=== PATIENT | male | born 2000 | race Caucasian/White ===

== ENCOUNTER 2023-10-18 20:34 | Inpatient (IN) | payer MEDICAID ==
[~2023-10-18] VITALS: Ht 170.2 cm; Wt 97.0 kg
[2023-10-18] MEDS ORDERED: GUAN1TAB22 PO (21:01)
[2023-10-18] MEDS ORDERED: CARI1.5C PO (21:02)
[2023-10-18] MEDS ORDERED: DIVA-153 PO (21:02)
[2023-10-18] MEDS ORDERED: OXCA300T70 PO (21:03)
[2023-10-18 22:36] LABS: BASOPHILS % (AUTO) 0.3 % (0.0-2.0); EOSINOPHILS % (AUTO) 1.3 % (1.0-6.0); HEMATOCRIT 49.2 % (41-53); HEMOGLOBIN 16.5 g/dL (13.5-17.5); LYMPHOCYTES # (AUTO) 2.3 K/uL (1.0-4.8); LYMPHOCYTES % (AUTO) 31.6 % (22.0-44.0); MEAN CORPUSCULAR HEMOGLOBIN 32.3 pg (26.0-34.0); MEAN CORPUSCULAR HGB CONC 33.5 G/dL (31.0-37.0); MEAN CORPUSCULAR VOLUME 97 fL (80-100); MONOCYTES # (AUTO) 0.8 K/uL (0.1-1.0); MONOCYTES % (AUTO) 10.2 % (2.0-9.0); NEUTROPHILS # (AUTO) 4.2 K/uL (1.8-7.7); NEUTROPHILS % (AUTO) 56.6 % (40.0-70.0); PLATELET COUNT (AUTO) 209 K/uL (150-450); RED CELL DISTRIBUTION WIDTH 14.3 % (11.5-14.5); WHITE BLOOD COUNT (AUTO) 7.4 K/uL (4.5-11.0)
[2023-10-18 22:43] LABS: ANION GAP 0 mmol/L (8-16); CALCIUM, TOTAL 9.6 mg/dL (8.8-10.5); CARBON DIOXIDE 35 mmol/L (22-29); CHLORIDE 104 mmol/L (98-107); CREATININE 0.91 mg/dL (0.60-1.30); GLOMERULAR FILTR. RATE CALC > 60 mL/min (>60); GLUCOSE,RANDOM 94 mg/dL (70-110); POTASSIUM 4.3 mmol/L (3.5-5.1); SODIUM SERUM 139 mmol/L (136-145); UREA NITROGEN, BLOOD 15 mg/dL (7-18)
[2023-10-18 22:45] LABS: C-REACTIVE PROTEIN QUANT 0.05 mg/dL (0.00-0.30)
[2023-10-18 22:49] LABS: ERYTHROCYTE SEDIMENTATION RATE 1 MM/HR (0-15)
[2023-10-19] MEDS: PIPERACILLIN/TAZO 3.375 GM/D5W 50 ML IV ONE (01:02)
[2023-10-19 01:18] LABS: LACTIC ACID 1.1 mmol/L (0.4-2.0)
[2023-10-19 05:00] VITALS: BP 114/48; PULSE 63; RESP 18; TEMP 97.8
[2023-10-19 08:10] VITALS: BP 104/57; PULSE 56; RESP 18; TEMP 97.6
[2023-10-19] MEDS ORDERED: ZOLPIDEM TARTRATE 5 MG TABLET PO PRN (08:30)
[2023-10-19] MEDS ORDERED: MORPHINE SULFATE 2 MG/ML SYRINGE IVP PRN (08:30)
[2023-10-19] MEDS ORDERED: BISACODYL 10 MG RECTAL RECTAL SUPPOSITORY PR PRN (08:30)
[2023-10-19] MEDS ORDERED: ONDANSETRON HCL 4 MG/2 ML VIAL IVP PRN (08:30)
[2023-10-19] MEDS ORDERED: ACETAMINOPHEN 325 MG TABLET PO PRN (08:30)
[2023-10-19] MEDS ORDERED: HYDROCODONE/ACETAMINOPHEN 5-325 MG TABLET PO PRN (08:30)
[2023-10-19] MEDS ORDERED: MAGNESIUM HYDROXIDE SUSPENSION 30 ML UDCUP PO PRN (08:30)
[2023-10-19] MEDS ORDERED: [UNRECOGNIZED DRUG - OTHER] PO SCH (09:00)
[2023-10-19] MEDS ORDERED: SODIUM CHLORIDE 0.9% 500 ML IV ONE (09:24)
[2023-10-19] MEDS: DIVALPROEX SODIUM 500 MG ER TABLET PO SCH (09:34)
[2023-10-19] MEDS: PANTOPRAZOLE SODIUM 40 MG DR TABLET PO SCH (09:34)
[2023-10-19] MEDS: VANCOMYCIN 1.25 GM/WATER(PEG) 250 ML IV ONE (09:34)
[2023-10-19] MEDS: DOCUSATE SODIUM 100 MG CAPSULE PO SCH (09:34)
[2023-10-19] MEDS: OXcarbazepine 300 MG TABLET PO SCH (09:34)
[2023-10-19] MEDS: VANCOMYCIN 1.25 GM/WATER(PEG) 250 ML IV SCH (16:04)
[2023-10-19] MEDS: HEPARIN SODIUM,PORCINE 5,000 UNITS/ML VIAL SQ SCH (16:05)
[2023-10-19 16:20] VITALS: BP 132/61; PULSE 59; RESP 18; TEMP 97.9
[2023-10-19 19:40] VITALS: BP 141/66; PULSE 95; RESP 20; TEMP 98
[2023-10-20 04:05] VITALS: BP 107/59; PULSE 63; RESP 20; TEMP 98.3
[2023-10-20 07:34] LABS: ANION GAP 8 mmol/L (8-16); CARBON DIOXIDE 31 mmol/L (22-29); CHLORIDE 103 mmol/L (98-107); CREATININE 0.77 mg/dL (0.60-1.30); GLOMERULAR FILTR. RATE CALC > 60 mL/min (>60); GLUCOSE,RANDOM 84 mg/dL (70-110); POTASSIUM 3.9 mmol/L (3.5-5.1); SODIUM SERUM 142 mmol/L (136-145); UREA NITROGEN, BLOOD 14 mg/dL (7-18); VANCOMYCIN,RANDOM 15.8 mcg/mL (25.0-50.0)
[2023-10-20 08:15] VITALS: BP 123/80; PULSE 60; RESP 20; TEMP 97.5
[2023-10-20] MEDS ORDERED: LEVO750T68 PO (12:07)
[2023-10-20 16:46] VITALS: BP 147/78; PULSE 73; RESP 20; TEMP 97.6
[2023-10-20 19:45] VITALS: BP 112/58; PULSE 58; RESP 19; TEMP 97.5
[2023-10-21 04:35] VITALS: BP 110/59; PULSE 97; RESP 19; TEMP 97.7
[2023-10-21 07:23] LABS: ANION GAP 7 mmol/L (8-16); CALCIUM, TOTAL 9.1 mg/dL (8.8-10.5); CARBON DIOXIDE 31 mmol/L (22-29); CHLORIDE 104 mmol/L (98-107); CREATININE 0.82 mg/dL (0.60-1.30); GLOMERULAR FILTR. RATE CALC > 60 mL/min (>60); GLUCOSE,RANDOM 91 mg/dL (70-110); POTASSIUM 3.6 mmol/L (3.5-5.1); SODIUM SERUM 142 mmol/L (136-145); UREA NITROGEN, BLOOD 10 mg/dL (7-18)
[2023-10-21 07:52] VITALS: BP 119/66; PULSE 69; RESP 18; TEMP 98.1
[2023-10-21 15:56] VITALS: BP 135/77; PULSE 75; RESP 18; TEMP 98.3
[2023-10-21 20:30] VITALS: BP 128/56; PULSE 63; RESP 20; TEMP 98
[2023-10-22 04:54] VITALS: BP 121/77; PULSE 82; RESP 18; TEMP 98
[2023-10-22 08:22] LABS: ANION GAP 10 mmol/L (8-16); CALCIUM, TOTAL 9.4 mg/dL (8.8-10.5); CARBON DIOXIDE 29 mmol/L (22-29); CHLORIDE 103 mmol/L (98-107); CREATININE 0.73 mg/dL (0.60-1.30); GLOMERULAR FILTR. RATE CALC > 60 mL/min (>60); GLUCOSE,RANDOM 97 mg/dL (70-110); POTASSIUM 3.4 mmol/L (3.5-5.1); SODIUM SERUM 142 mmol/L (136-145); UREA NITROGEN, BLOOD 9 mg/dL (7-18)
[2023-10-22 09:58] VITALS: BP 124/76; PULSE 101; RESP 18; TEMP 98.9
[2023-10-22] MEDS: POTASSIUM CHLORIDE 20 MEQ ER TABLET PO ONE (15:43)
== END 2023-10-22 17:25 | disposition home or self-care (01) | DRG 383 ==
LOC: EMS 20:35 → EDH 10-19 03:09 → 4E 10-19 04:56
PROVIDERS: ADMIT Internal Medicine; ATTEND Internal Medicine
DX: L03.115 Cellulitis of right lower limb (principal); F90.9 Attention-deficit hyperactivity disorder, unspecified type; G40.909 Epilepsy, unspecified, not intractable, without status epilepticus; L03.116 Cellulitis of left lower limb; J45.909 Unspecified asthma, uncomplicated; G80.9 Cerebral palsy, unspecified; Z88.1 Allergy status to other antibiotic agents; Z79.899 Other long term (current) drug therapy; Z79.2 Long term (current) use of antibiotics
CPT/HCPCS: 80048; 80202; 83605; 84145; 85025; 85651; 86140; 87040; 87077; 87205; 99285; G0378; J1644; J2543; J7040; Q9967

== ENCOUNTER 2023-10-31 12:16 | Inpatient (IN) | payer MEDICAID ==
[~2023-10-31] VITALS: Ht 167.6 cm; Wt 92.8 kg
[~2023-10-31 12:16] MED LIST: CARI1.5C PO; DIVA-153 PO; GUAN1TAB22 PO; LEVO750T68 PO; OXCA300T70 PO
[2023-10-31 12:46] LABS: BASOPHILS % (AUTO) 0.4 % (0.0-2.0); EOSINOPHILS % (AUTO) 0.9 % (1.0-6.0); HEMOGLOBIN 16.6 g/dL (13.5-17.5); LYMPHOCYTES # (AUTO) 1.6 K/uL (1.0-4.8); LYMPHOCYTES % (AUTO) 20.4 % (22.0-44.0); MEAN CORPUSCULAR HEMOGLOBIN 32.1 pg (26.0-34.0); MEAN CORPUSCULAR HGB CONC 33.2 G/dL (31.0-37.0); MEAN CORPUSCULAR VOLUME 97 fL (80-100); MONOCYTES # (AUTO) 0.5 K/uL (0.1-1.0); NEUTROPHILS # (AUTO) 5.5 K/uL (1.8-7.7); NEUTROPHILS % (AUTO) 72.3 % (40.0-70.0); PLATELET COUNT (AUTO) 229 K/uL (150-450); RED BLOOD CELL COUNT(AUTO) 5.17 MIL/uL (4.50-5.90); WHITE BLOOD COUNT (AUTO) 7.6 K/uL (4.5-11.0)
[2023-10-31 12:56] LABS: ANION GAP 5 mmol/L (8-16); CALCIUM, TOTAL 9.3 mg/dL (8.8-10.5); CARBON DIOXIDE 34 mmol/L (22-29); CHLORIDE 102 mmol/L (98-107); GLOMERULAR FILTR. RATE CALC > 60 mL/min (>60); GLUCOSE,RANDOM 117 mg/dL (70-110); POTASSIUM 4.2 mmol/L (3.5-5.1); SODIUM SERUM 141 mmol/L (136-145); UREA NITROGEN, BLOOD 10 mg/dL (7-18)
[2023-10-31 13:00] LABS: ALCOHOL, BLOOD (SERUM) < 3 mg/dL (0-10)
[2023-10-31 14:29] LABS: COVID AG,FIA SOURCE NASAL SWAB
[2023-10-31] MEDS ORDERED: HALOPERIDOL 5 MG TABLET PO PRN (14:30)
[2023-10-31] MEDS ORDERED: ZOLPIDEM TARTRATE 10 MG TABLET PO PRN (14:30)
[2023-10-31] MEDS ORDERED: LORazepam 2 MG TABLET PO PRN (14:30)
[2023-10-31 14:54] LABS: SARS-COV2 (COVID) ANTIGEN,FIA Negative (Negative)
[2023-10-31 18:57] LABS: APPEARANCE,URINE HAZY (CLEAR); BILIRUBIN,URINE NEGATIVE (NEGATIVE); COLOR,URINE LIGHT YELLOW (YELLOW); GLUCOSE, URINE (UA) NEGATIVE (NEGATIVE); KETONES,URINE NEGATIVE (NEGATIVE); LEUKOCYTE ESTERASE ,URINE NEGATIVE (NEGATIVE); NITRATE,URINE NEGATIVE (NEGATIVE); OCCULT BLOOD,URINE NEGATIVE (NEGATIVE); PH,URINE 7.5 (5.0-8.0); PROTEIN,URINE NEGATIVE (NEGATIVE); SPECIFIC GRAVITIY, URINE 1.013 (1.003-1.030); UROBILINOGEN,URINE <=1.0 mg/dL (<=1.0)
[2023-10-31 18:59] LABS: PH,URINE DRUG SCREEN 7.5 (5.0-8.0)
[2023-10-31 19:04] LABS: AMPHET/METH SCREEN,URINE NEGATIVE (NEGATIVE); BARBITURATE SCREEN, URINE NEGATIVE (NEGATIVE); BENZODIAZEPINES SCREEN,URINE NEGATIVE (NEGATIVE); CANNABINOID SCREEN,URINE NEGATIVE (NEGATIVE); COCAINE SCREEN,URINE NEGATIVE (NEGATIVE); METHADONE SCREEN, URINE NEGATIVE (NEGATIVE); OPIATE SCREEN,URINE NEGATIVE (NEGATIVE); PHENCYCLIDINE SCREEN,URINE NEGATIVE (NEGATIVE)
[2023-10-31 19:07] LABS: ALCOHOL, URINE DRUG SCREEN NEGATIVE (NEGATIVE)
[2023-11-01 10:00] VITALS: BP 142/87; PULSE 88; RESP 18; TEMP 98.1; O2SAT 98
[2023-11-01] MEDS: GuanFACINE HCL 1 MG TABLET PO SCH (12:30)
[2023-11-01] MEDS: RisperiDONE 2 MG TABLET PO SCH (12:30)
[2023-11-01] MEDS: DIVALPROEX SODIUM 500 MG ER TABLET PO SCH (16:09)
[2023-11-01] MEDS: OXcarbazepine 300 MG TABLET PO SCH (16:10)
[2023-11-01 22:03] VITALS: BP 123/58; PULSE 94; RESP 18; TEMP 97.9; O2SAT 99
[2023-11-02] MEDS ORDERED: MAGNESIUM HYDROXIDE SUSPENSION 30 ML UDCUP PO PRN (07:15)
[2023-11-02] MEDS ORDERED: CloNIDine HCL 0.1 MG TABLET PO PRN (07:15)
[2023-11-02] MEDS ORDERED: ALBUTEROL SULFATE HFA 90 MCG/PUFF 8 GM INHALER IH PRN (07:15)
[2023-11-02] MEDS ORDERED: ACETAMINOPHEN 325 MG TABLET PO PRN (07:15)
[2023-11-02] MEDS ORDERED: DOCUSATE SODIUM 100 MG CAPSULE PO PRN (07:15)
[2023-11-02] MEDS ORDERED: ONDANSETRON HCL 4 MG TABLET PO PRN (07:15)
[2023-11-02] MEDS ORDERED: LOPERAMIDE HCL 2 MG CAPSULE PO PRN (07:15)
[2023-11-02] MEDS ORDERED: OMEPRAZOLE 20 MG CAPSULE PO PRN (07:15)
[2023-11-02] MEDS ORDERED: BACITRACIN 28 GM OINTMENT TP PRN (07:15)
[2023-11-02] MEDS ORDERED: IBUPROFEN 600 MG TABLET PO PRN (07:15)
[2023-11-02] MEDS ORDERED: BENZOCAINE/MENTHOL LOZENGE PO PRN (07:15)
[2023-11-02] MEDS ORDERED: MAG HYDROX/ALUMINUM HYD/SIMETH ES 30 ML SUSPENSION UDCUP PO PRN (07:15)
[2023-11-02] MEDS ORDERED: PETROLATUM,WHITE 28 GM JELLY TP PRN (07:15)
[2023-11-02 08:58] VITALS: BP 134/78; PULSE 79; RESP 18; TEMP 97.8; O2SAT 97
[2023-11-02 21:44] VITALS: BP 120/72; PULSE 81; RESP 19; TEMP 98.1; O2SAT 98
[2023-11-03 08:50] VITALS: BP 128/80; PULSE 80; RESP 18; TEMP 98.1; O2SAT 97
[2023-11-03] MEDS ORDERED: RISP-32 PO (14:56)
[2023-11-03] MEDS ORDERED: OXCA300T28 PO (14:56)
[2023-11-03] MEDS ORDERED: DIVA-153 PO (14:56)
== END 2023-11-03 17:11 | disposition home or self-care (01) | DRG 750 ==
LOC: EMS 12:16 → 3EI 11-01 11:07
PROVIDERS: ADMIT Psychiatry & Neurology Child & Adolescent Psychiatry; ATTEND Psychiatry & Neurology Child & Adolescent Psychiatry
DX: F25.0 Schizoaffective disorder, bipolar type (principal); G40.909 Epilepsy, unspecified, not intractable, without status epilepticus; F12.10 Cannabis abuse, uncomplicated; Z20.822 Contact with and (suspected) exposure to COVID-19; G80.9 Cerebral palsy, unspecified; J44.9 Chronic obstructive pulmonary disease, unspecified; K59.00 Constipation, unspecified; F41.9 Anxiety disorder, unspecified; G47.00 Insomnia, unspecified; Z88.1 Allergy status to other antibiotic agents
CPT/HCPCS: 80048; 80164; 80307; 81003; 85025; 87081; 99285; G0480

== ENCOUNTER 2023-11-20 10:58 | Emergency (ER) | payer MEDICAID ==
[~2023-11-20] VITALS: Ht 177.8 cm; Wt 94.5 kg
[~2023-11-20 10:58] MED LIST changes: -CARI1.5C PO; -GUAN1TAB22 PO; +OXCA300T28 PO; -OXCA300T70 PO; +RISP-32 PO
[2023-11-20 11:13] VITALS: TEMP 98.2
[2023-11-20] MEDS: FUROSEMIDE 20 MG TABLET PO ONE (12:47)
[2023-11-20 12:56] LABS: BASOPHILS % (AUTO) 0.3 % (0.0-2.0); EOSINOPHILS % (AUTO) 0.3 % (1.0-6.0); HEMATOCRIT 47.2 % (41-53); HEMOGLOBIN 15.9 g/dL (13.5-17.5); LYMPHOCYTES # (AUTO) 1.3 K/uL (1.0-4.8); LYMPHOCYTES % (AUTO) 19.4 % (22.0-44.0); MEAN CORPUSCULAR HEMOGLOBIN 32.4 pg (26.0-34.0); MEAN CORPUSCULAR HGB CONC 33.6 G/dL (31.0-37.0); MEAN CORPUSCULAR VOLUME 97 fL (80-100); MONOCYTES # (AUTO) 0.8 K/uL (0.1-1.0); MONOCYTES % (AUTO) 11.2 % (2.0-9.0); NEUTROPHILS # (AUTO) 4.7 K/uL (1.8-7.7); NEUTROPHILS % (AUTO) 68.8 % (40.0-70.0); PLATELET COUNT (AUTO) 161 K/uL (150-450); RED CELL DISTRIBUTION WIDTH 13.5 % (11.5-14.5); WHITE BLOOD COUNT (AUTO) 6.8 K/uL (4.5-11.0)
[2023-11-20 13:11] LABS: ANION GAP 6 mmol/L (8-16); CALCIUM, TOTAL 8.8 mg/dL (8.8-10.5); CARBON DIOXIDE 30 mmol/L (22-29); CHLORIDE 102 mmol/L (98-107); CREATININE 0.88 mg/dL (0.60-1.30); GLOMERULAR FILTR. RATE CALC > 60 mL/min (>60); GLUCOSE,RANDOM 98 mg/dL (70-110); POTASSIUM 3.7 mmol/L (3.5-5.1); SODIUM SERUM 138 mmol/L (136-145); UREA NITROGEN, BLOOD 16 mg/dL (7-18)
[2023-11-20] MEDS ORDERED: CEPH-558 PO (13:53)
[2023-11-20] MEDS ORDERED: FURO20 PO (13:53)
[2023-11-20] MEDS ORDERED: DOXY-354 PO (13:53)
[2023-11-20] MEDS ORDERED: POTA8TAB71 PO (13:53)
[2023-11-20 14:31] VITALS: BP 131/79; PULSE 82; RESP 16
== END 2023-11-20 14:47 | disposition home or self-care (01) ==
LOC: EMS 11:01
DX: R60.0 Localized edema (principal); L03.115 Cellulitis of right lower limb; L03.116 Cellulitis of left lower limb; J45.909 Unspecified asthma, uncomplicated; Z88.1 Allergy status to other antibiotic agents
CPT/HCPCS: 80048; 85025; 99283